=== PATIENT | male | born 1970 | race Asian ===

== ENCOUNTER 2023-12-11 08:49 | Day surgery (SDC) | payer OTHER ==
[~2023-12-11] VITALS: Ht 170.2 cm; Wt 83.0 kg
[2023-12-11] MEDS ORDERED: LIDOCAINE 1% 500 MG/50 ML VIAL ONE (09:36)
[2023-12-11] MEDS: fentaNYL citrate 0.05 MG/ML VIAL ONE (10:18)
== END 2023-12-11 12:10 | disposition home or self-care (01) ==
LOC: MDS 08:49 → MMU 08:50 → MDS 12:10
PROVIDERS: ATTEND Internal Medicine Gastroenterology
DX: B19.10 Unspecified viral hepatitis B without hepatic coma (principal); K21.9 Gastro-esophageal reflux disease without esophagitis; E11.9 Type 2 diabetes mellitus without complications; Z87.891 Personal history of nicotine dependence; Z88.8 Allergy status to other drugs, medicaments and biological substances; Z79.899 Other long term (current) drug therapy
CPT/HCPCS: 47000; 82948; J2001; J3010